=== PATIENT | male | born 1950 | race Caucasian/White ===

== ENCOUNTER 2018-04-04 13:09 | Outpatient (CLI) | payer MEDICARE, MEDICAID ==
[~2018-04-04] VITALS: Ht 152.4 cm; Wt 37.6 kg
[2018-04-04 13:30] VITALS: BP 107/62
--- NOTE | 2018-04-04 23:00 | Consultation ---
DATE OF CONSULTATION: 04/04/2018 CONSULTING PHYSICIAN: Joey Kaur M.D. REASON FOR CONSULTATION: Outpatient office visit for GI bleeding, significant weight loss. HISTORY OF PRESENT ILLNESS: This is a very pleasant 68-year-old [place] male with past medical history of prostate enlargement requiring prostate surgery, history of anxiety, constipation chronic. He uses enemas frequently. Apparently, he had one episode of hematemesis. Also, he had colonoscopy. Last colonoscopy was 4 years ago, but for the last 6 months, he has been losing a lot of weight of about 20 pounds, unwanted, and was referred for us for evaluation. PAST MEDICAL HISTORY: 1. Depression. 2. Anxiety. 3. Constipation. PAST SURGICAL HISTORY: Prostatectomy. MEDICATIONS: Please see medication reconciliation list. ALLERGIES: No known drug allergies. FAMILY HISTORY: Noncontributory. SOCIAL HISTORY: Denies any tobacco, alcohol, or illicit drug abuse. REVIEW OF SYSTEMS: A 10-point review of systems was performed and pertinent positives in the HPI. PHYSICAL EXAMINATION: VITAL SIGNS: Temperature is 98.2, blood pressure is 107/62, pulse 76, and respirations 20. HEENT: Normocephalic and atraumatic. Mild pale conjunctivae. NECK: Supple. No obvious evidence of lymphadenopathy. CARDIOVASCULAR: Regular rhythm. Plus S1 and S2. LUNGS: Decreased breath sounds bilaterally. ABDOMEN: Soft and nontender. No rebound. No guarding. No peritoneal sign. EXTREMITIES: No cyanosis, no clubbing, no edema. ASSESSMENT: This is a 68-year-old male with GI bleeding, significant amount of weight loss, chronic constipation. PLAN: I had a long discussion with the son and with the patient. We are going to plan for him to get endoscopy and colonoscopy this week. On the procedure day, we are going to check thyroid panel, CEA level, and another CBC. The patient if has negative endoscopy and colonoscopy, we recommend hickman-CT to evaluate for weight loss and then the patient to come back for further followup after that. I want to thank, Dr. Salazar, for this kind referral. Joey Kaur M.D. DR: SARABJIT JOB#: [id number] CC: Lisbet Salazar M.D.; Fax#: [phone]
--- NOTE | 2018-04-04 23:30 | Consultation ---
DATE OF CONSULTATION: CONSULTING PHYSICIAN: Joey Kaur M.D. REASON FOR CONSULTATION: Outpatient office visit for GI bleeding, significant weight loss. HISTORY OF PRESENT ILLNESS: This is a very pleasant 68-year-old [place] male with past medical history of prostate enlargement requiring prostate surgery, history of anxiety, constipation chronic. He uses enemas frequently. Apparently, he had one episode of hematemesis. Also, he had colonoscopy. Last colonoscopy was 4 years ago, but for the last 6 months, he has been losing a lot of weight of about 20 pounds, unwanted, and was referred for us for evaluation. PAST MEDICAL HISTORY: 1. Depression. 2. Anxiety. 3. Constipation. PAST SURGICAL HISTORY: Prostatectomy. MEDICATIONS: Please see medication reconciliation list. ALLERGIES: No known drug allergies. FAMILY HISTORY: Noncontributory. SOCIAL HISTORY: Denies any tobacco, alcohol, or illicit drug abuse. REVIEW OF SYSTEMS: A 10-point review of systems was performed and pertinent positives in the HPI. PHYSICAL EXAMINATION: VITAL SIGNS: Temperature is 98.2, blood pressure is 107/62, pulse 76, and respirations 20. HEENT: Normocephalic and atraumatic. Mild pale conjunctivae. NECK: Supple. No obvious evidence of lymphadenopathy. CARDIOVASCULAR: Regular rhythm. Plus S1 and S2. LUNGS: Clear breath sounds bilaterally. ABDOMEN: Positive bowel sounds. Soft and nontender. No rebound. No guarding. No peritoneal sign. EXTREMITIES: No cyanosis, no clubbing, no edema. ASSESSMENT: This is a 68-year-old male with GI bleeding, significant amount of weight loss, chronic constipation. PLAN: I had a long discussion with the son and with the patient. We are going to plan for him to get endoscopy and colonoscopy this week. On the procedure day, we are going to check thyroid panel, CEA level, and another CBC. The patient if he has negative endoscopy and colonoscopy, we recommend hickman-CT to evaluate for weight loss and then the patient to come back for further followup after that. I want to thank, Dr. Salazar, for this kind referral. Joey Kaur M.D. DR: Veto JOB#: [id number] CC:
--- NOTE | 2018-04-05 01:15 | Consultation ---
DATE OF CONSULTATION: 04/04/2018 CONSULTING PHYSICIAN: Joey Kaur M.D. REASON FOR CONSULTATION: Outpatient office visit for GI bleeding, significant weight loss. HISTORY OF PRESENT ILLNESS: This is a very pleasant 68-year-old [place] male with past medical history of prostate enlargement requiring prostate surgery, history of anxiety, constipation chronic. He uses enemas frequently. Apparently, he had one episode of hematemesis. Also, he had colonoscopy. Last colonoscopy was 4 years ago, but for the last 6 months, he has been losing a lot of weight of about 20 pounds, unwanted, and was referred for us for evaluation. PAST MEDICAL HISTORY: 1. Depression. 2. Anxiety. 3. Constipation. PAST SURGICAL HISTORY: Prostatectomy. MEDICATIONS: Please see medication reconciliation list. ALLERGIES: No known drug allergies. FAMILY HISTORY: Noncontributory. SOCIAL HISTORY: Denies any tobacco, alcohol, or illicit drug abuse. REVIEW OF SYSTEMS: A 10-point review of systems was performed and pertinent positives in the HPI. PHYSICAL EXAMINATION: VITAL SIGNS: Temperature is 98.2, blood pressure is 107/62, pulse 76, and respirations 20. HEENT: Normocephalic and atraumatic. Mild pale conjunctivae. NECK: Supple. No obvious evidence of lymphadenopathy. CARDIOVASCULAR: Regular rhythm. Plus S1 and S2. LUNGS: Clear to auscultation bilaterally. ABDOMEN: Positive bowel sounds. Soft and nontender. No rebound. No guarding. No peritoneal sign. EXTREMITIES: No cyanosis, no clubbing, no edema. ASSESSMENT: This is a 68-year-old male with GI bleeding, significant amount of weight loss, chronic constipation. PLAN: I had a long discussion with the son and with the patient. We are going to plan for him to get endoscopy and colonoscopy this week. On the procedure day, we are going to check thyroid panel, CEA level, and another CBC. The patient if he has negative endoscopy and colonoscopy, we recommend hickman-CT to evaluate for weight loss and then the patient to come back for further followup after that. I want to thank, Dr. Salazar, for this kind referral. Joey Kaur M.D. DR: Veto JOB#: [id number] CC:
[2018-04-05] MEDS ORDERED: OMEPRAZOLE20 M3 ORAL (08:16)
[2018-04-05] MEDS ORDERED: CLARITIN10 M2 ORAL (08:16)
== END 2018-04-04 13:39 | disposition home or self-care (01) ==
LOC: PAN 13:09
DX: K92.2 Gastrointestinal hemorrhage, unspecified (principal); F32.9 Major depressive disorder, single episode, unspecified; F41.9 Anxiety disorder, unspecified; K59.00 Constipation, unspecified; R63.4 Abnormal weight loss
CPT/HCPCS: 99202